=== PATIENT | female | born 1975 | race Caucasian/White ===

== ENCOUNTER 2017-11-18 07:15 | Day surgery (SDC) | payer BC ==
[2017-11-18] MEDS ORDERED: PROPOFOL 20 ML (08:52)
[2017-11-18] MEDS ORDERED: MIDAZOLAM 1 MG/ML 2 ML INJ (08:52)
[2017-11-18] MEDS ORDERED: LIDOCAINE 2% (SDV) 5 ML INJ (08:52)
== END 2017-11-18 14:10 | disposition home or self-care (01) ==
LOC: GIL 07:15
DX: R19.4 Change in bowel habit (principal); K64.8 Other hemorrhoids
CPT/HCPCS: 45378; 84703